=== PATIENT | female | born 1980 | race Asian ===

== ENCOUNTER → 2024-08-24 | Emergency (ER) | payer OTHER ==
[~2024-08-24] VITALS: Ht 162.6 cm; Wt 61.2 kg
[2024-08-24 17:50] VITALS: BP 177/95; TEMP 98.3; O2SAT 99
== END ==
LOC: ER 17:49
DX: M79.606 Pain in leg, unspecified (principal); Z53.21 Procedure and treatment not carried out due to patient leaving prior to being seen by health care provider

== ENCOUNTER → 2024-08-25 | Emergency (ER) | payer OTHER ==
[~2024-08-25] VITALS: Ht 152.4 cm; Wt 45.4 kg
[~2024-08-25] MED LIST: IBUPROFEN 600 MG TABLET ONE
[2024-08-25 23:17] VITALS: TEMP 98.1
[2024-08-25] MEDS: IBUPROFEN 600 MG TABLET PO ONE (23:30)
[2024-08-26 01:02] VITALS: BP 129/75; O2SAT 98
== END | disposition home or self-care (01) ==
LOC: ER 22:57
DX: M79.652 Pain in left thigh (principal)
CPT/HCPCS: 99283; 73552; J7030

== ENCOUNTER 2025-02-21 20:12 | Emergency (ER) | payer OTHER ==
[~2025-02-21] VITALS: Ht 152.4 cm; Wt 49.9 kg
[2025-02-21 20:24] VITALS: TEMP 98.2
[2025-02-21] MEDS ORDERED: MORPHINE SULFATE INJ 4 MG/ML DISP.SYRIN ONE (20:29)
[2025-02-21] MEDS ORDERED: ONDANSETRON HCL/PF 4 MG/2 ML VIAL ONE (20:29)
[2025-02-21] MEDS: ONDANSETRON HCL/PF 4 MG/2 ML VIAL IVP ONE (20:39)
[2025-02-21] MEDS: MORPHINE SULFATE INJ 2 MG/ML DISP.SYRIN IV ONE (20:41)
[2025-02-21 20:42] LABS: PLATELET COUNT (AUTO) 355 K/uL (150-450); RED BLOOD CELL COUNT(AUTO) 4.61 MIL/uL (4.0-5.2); RED CELL DISTRIBUTION WIDTH 13.9 % (11.5-15.0); WHITE BLOOD COUNT (AUTO) 8.8 K/uL (4.3-11.0)
[2025-02-21 20:56] LABS: ASPARTATE AMINOTRANSFERASE 13.0 U/L (15-37); CALCIUM, SERUM 9.2 mg/dL (8.5-10.1); CREATININE 0.8 mg/dL (0.6-1.3); SODIUM SERUM 138.0 mmol/L (136-145); TOTAL PROTEIN, SERUM 7.7 g/dL (6.4-8.2); UREA NITROGEN, BLOOD 8.0 mg/dL (7-18)
[2025-02-21 20:58] LABS: APPEARANCE,URINE SLIGHTLY CLOUDY (CLEAR); BLOOD, URINE 3+ Ery/uL (NEGATIVE); LEUKOCYTE ESTERASE ,URINE 2+ (NEGATIVE); NITRITE, URINE NEGATIVE (NEGATIVE); UGLUCOSE NEGATIVE (NEGATIVE)
[2025-02-21 21:28] LABS: PREGNANCY TEST URINE QUAL NEGATIVE (NEGATIVE)
[2025-02-21 21:30] LABS: ADD URINE CULTURE YES
[2025-02-21] MEDS ORDERED: IBUP-1490 PO (21:51)
[2025-02-21] MEDS ORDERED: CEFD300C3 PO (21:51)
[2025-02-21] MEDS ORDERED: CEFTRIAXONE 1 G in IV D5W 50 ML IV ONE (22:00)
[2025-02-21 22:02] VITALS: BP 155/97; O2SAT 98
== END 2025-02-21 22:02 | disposition home or self-care (01) ==
LOC: ER 20:14
DX: N12 Tubulo-interstitial nephritis, not specified as acute or chronic (principal); Z60.2 Problems related to living alone
CPT/HCPCS: 99285; 96374; 76705; 96375; 85025; 80048; 87086; 83690; 80076; 84703; 81001; 36415; J2270; J0696; J2405; J7060

== ENCOUNTER 2025-02-23 14:30 | Emergency (ER) | payer OTHER ==
[~2025-02-23] VITALS: Ht 137.2 cm; Wt 49.9 kg
[~2025-02-23 14:30] MED LIST changes: +CEFD300C3 PO; +IBUP-1490 PO; -IBUPROFEN 600 MG TABLET ONE
[2025-02-23 14:56] VITALS: BP 143/95; TEMP 98
[2025-02-23] MEDS ORDERED: CEFTRIAXONE 500 MG VIAL ONE (16:59)
[2025-02-23] MEDS ORDERED: DOXYCYCLINE HYCLATE (100 MG) 100 MG TABLET ONE (17:00)
[2025-02-23] MEDS ORDERED: LIDOCAINE /MPF 1% VIAL 5 ML VIAL ONE (17:00)
[2025-02-23 17:03] LABS: PLATELET COUNT (AUTO) 354 K/uL (150-450); RED BLOOD CELL COUNT(AUTO) 4.16 MIL/uL (4.0-5.2); RED CELL DISTRIBUTION WIDTH 13.4 % (11.5-15.0); WHITE BLOOD COUNT (AUTO) 9.1 K/uL (4.3-11.0)
[2025-02-23 17:10] LABS: CALCIUM, SERUM 8.9 mg/dL (8.5-10.1); CREATININE 0.7 mg/dL (0.6-1.3); SODIUM SERUM 136.0 mmol/L (136-145); UREA NITROGEN, BLOOD 13.0 mg/dL (7-18)
[2025-02-23 17:18] LABS: LACTIC ACID 1.0 mmol/L (0.4-2.0)
[2025-02-23 17:25] LABS: ASPARTATE AMINOTRANSFERASE 15.0 U/L (15-37); TOTAL PROTEIN, SERUM 7.3 g/dL (6.4-8.2)
[2025-02-23] MEDS: CEFTRIAXONE 1 G VIAL IM ONE (17:30)
[2025-02-23] MEDS: DOXYCYCLINE HYCLATE (100 MG) 100 MG TABLET PO ONE (17:32)
[2025-02-23 17:33] VITALS: O2SAT 98
[2025-02-23] MEDS ORDERED: DOXY100T2 PO (17:38)
== END 2025-02-23 17:33 | disposition home or self-care (01) ==
LOC: ER 14:36
DX: N12 Tubulo-interstitial nephritis, not specified as acute or chronic (principal); F12.90 Cannabis use, unspecified, uncomplicated; Z60.2 Problems related to living alone; Z87.440 Personal history of urinary (tract) infections; Z20.2 Contact with and (suspected) exposure to infections with a predominantly sexual mode of transmission
CPT/HCPCS: 99283; 96372; 85025; 80048; 83605; 83690; 80076; 36415; J0696; J3490